=== PATIENT | male | born 2000 | race Caucasian/White ===

== ENCOUNTER 2022-04-12 09:33 | Emergency (ER) | payer OTHER, SELFPAY ==
[2022-04-12 09:35] VITALS: BP 132/72; PULSE 78; RESP 18; TEMP 36.7; O2SAT 98; BMI 19.3
[2022-04-12] MEDS: diphenhydrAMINE HCL 50 MG/ML VIAL IVPUSH (10:31)
[2022-04-12] MEDS: Famotidine/PF 20 MG/2 ML VIAL IVPUSH (10:31)
[2022-04-12] MEDS: methylPREDNISolone Sod Succ 125 MG/2 ML VIAL IVPUSH (10:31)
--- NOTE | 2022-04-12 10:34 | ED.ALLEREA ---
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 Patient states he was stung on his left leg, just above the ankle. He has an EpiPen which he used prior to admission to the ED. He denies taking any other medications. Patient endorses hives appearing on neck, bilateral upper extremities, and back. He reports mild chest tightness. Patient denies any SOB, tongue, or throat swelling. MD complaint: allergic reaction and hives Onset (ago): hour(s) Exposure: other (Bee sting) Known history of allergy to: Bees Symptoms: rash (Hives) and itching Severity: moderate Treatment prior to arrival: epinephrine Previous Allergic Reaction History: prior ED visit(s) and anaphylaxis Related Data Previous Rx's Medication Instructions Recorded diphenhydramine HCl 25 mg tablet 25 mg PO TID PRN allergic reaction 04/12/22 (Benadryl Allergy) #14 tabs Allergies Allergy/AdvReac Type Severity Reaction Status Date / Time amoxicillin [AMOXICILLIN] Allergy Unknown HIVES Unverified 05/28/20 17:00 bee pollen [bee stings] Allergy Hives Verified 04/12/22 09:34 Review of Systems Review of Systems: Constitutional: No Weight loss, No Fever, No Chills ENT/Mouth: No Ear Pain, No Nasal Congestion, No Sinus Pain, No Hoarseness, No sore throat, No Rhinorrhea, No Swallowing Difficulty Cardiovascular: No Chest Pain, No SOB Respiratory: No Cough, No Sputum, No Wheezing Gastrointestinal: No Nausea, No Vomiting, No Diarrhea, No Constipation, No Abdominal pain Musculoskeletal: No joint pain, No Myalgias, No Joint Swelling Skin: Hives on bilateral upper extremities, trunk, and neck. Bee sting on LLE is mildly raised with erythema and warmth. Neuro: No Weakness, No Numbness, No Paresthesias Yes all other systems are reviewed and are negative Constitutional: Constitutional: Reports as per [facility] Past Medical History Attestation statement: The following information was validated with the patient. Social History Social History Advance Directives: No Advance Directives Information Provided: Yes Physical Exam ED Vital Signs: Vital Signs - 24 hr 04/12/22 09:35 04/12/22 12:06 Temperature 98.1 F Pulse Rate 78 65 Respiratory Rate 18 14 Blood Pressure 132/72 113/59 L Pulse Oximetry 98 98 Oxygen Delivery Method Room Air Room Air BMI result Body Mass Index 19.3 Const General: cooperative, healthy appearing and no acute distress Orientation/consciousness: patient oriented x3 Limitations: no limitations HENMT Head: Yes normal to inspection and Yes atraumatic Ears: hearing grossly normal bilaterally General nose exam: Normal external nose present Face and sinus: Yes normal facial exam Mouth: Normal oral and palatal mucosa present and no drooling Throat: Yes posterior oropharynx normal, Yes tonsils normal, Yes uvula midline, No uvula laterally displaced and No uvular edema Eyes General: appearance normal, both eyes and all related structures EOM: EOMs intact bilaterally Neck Neck: Yes normal visual inspection and Yes no meningeal signs Resp Effort & Inspection: normal respiratory effort, able to speak in complete sentences, no audible wheezes, no grunting, not labored, no respiratory distress, no segmental paradox chest wall movement and no stridor Auscultation: clear to auscultation bilaterally, no crackles, no rales, no rhonchi and no wheezes Cardio Rate: regular rate Heart sounds: S1 normal heart sound present and S2 normal heart sound present Skin Rashes: rashes noted (Hives on bilateral upper extremities, trunk, and neck) Wounds: no wounds Neuro General: patient oriented x3, tone normal and no meningeal signs Gait exam (Neuro): Normal gait present Extrem General: Yes normal to inspection Course Course Course Narrative: -1205--patient reports symptomatic improvement, requesting to be discharged home. Denies SOB, throat swelling, pruritus. On re-evaluation hives almost completely resolved, no respiratory distress, lungs CTA. 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 Patient states he was stung on his left leg, just above the ankle. Physical exam as noted above. Vital signs stable, no respiratory distress, talking in complete sentences concern for allergic reaction. No evidence of anaphylaxis at this time. No angioedema Plan: -Observation for 1.5 hours following EpiPen use -Continuous cardiac monitoring -IV Famotidine, Benadryl, and Methylprednisolone -Follow up with PCP Differential Diagnosis Differential diagnosis: Likely anaphylaxis, allergic reaction, angioedema and urticaria Medical Records Attestation: I reviewed the patient's medical records. Lab Data Attestation: I reviewed the patient's lab results. Discharge Plan Discharge Clinical Impression: Allergic reaction, Urticaria Patient Disposition: Home, Self-Care Instructions: General Allergic Reaction (ED) Additional Instructions: You were treated today for an allergic reaction. You self medicated using an EpiPen and were later given IV medications to aid with breathing and to stop your hives. Please return to the ED should you develop any further shortness of breath, chest tightness, angioedema (swelling of the tongue or throat), or hives. You can take Benadryl at home should symptoms occur. This may cause drowsiness. You can also take Zertec or Claritin for relief. Prescriptions: New diphenhydramine HCl [Benadryl Allergy] 25 mg tablet 25 mg PO TID PRN (Reason: allergic reaction) Qty: 14 0RF Referrals: Physician,None [Primary Care Provider] - 2 days
--- NOTE | 2022-04-12 11:24 | PC.NURSE ---
decrease in hives. pt reports feeling a lot better
[2022-04-12 12:06] VITALS: BP 113/59; PULSE 65; RESP 14; O2SAT 98
== END 2022-04-12 12:12 | disposition home or self-care (01) ==
PROVIDERS: Emergency Provider Emergency Medicine Emergency Medical Services
DX: T63.441A Toxic effect of venom of bees, accidental (unintentional), initial encounter (principal); L50.9 Urticaria, unspecified; Y92.017 Garden or yard in single-family (private) house as the place of occurrence of the external cause
CPT/HCPCS: 96374; 96375; 99284; J1200; J2930